=== PATIENT | female | born 1980 | race Caucasian/White ===

== ENCOUNTER 2017-01-15 20:06 | Emergency (ER) | payer OTHER ==
[2017-01-15 22:44] LABS: BASOPHIL % 1.6 % (0-2); PLATELET COUNT 216 x10^3mcL (130-400)
[2017-01-15 22:46] LABS: RED CELL DISTRIBUTION WIDTH 15.3 % (11.5-14.5)
[2017-01-15 22:58] LABS: CALCIUM 8.7 mg/dL (8.5-10.1); CHLORIDE SERUM 105 mmol/L (98-107); CREATININE SERUM 0.9 mg/dL (0.6-1.0); GFR1 > 60 mL/min; GLUCOSE SERUM 119 mg/dL (74-106); POTASSIUM SERUM 4.1 mmol/L (3.5-5.1); SODIUM SERUM 141 mmol/L (136-145)
[2017-01-15 23:03] LABS: ALKALINE PHOSPHATASE 78 U/L (46-116); ALT/SGPT 41 U/L (14-59); AST/SGOT 22 U/L (15-37); BILIRUBIN TOTAL 0.2 mg/dL (0.20-1.00); LIPASE 216 IU/L (73-393)
[2017-01-15 23:04] LABS: ALBUMIN 3.3 g/dL (3.4-5.0)
[2017-01-16 04:00] VITALS: BP 127/66
== END 2017-01-16 04:00 | disposition home or self-care (01) ==
LOC: ED 20:06
PROVIDERS: Emergency Medicine
DX: R10.30 Lower abdominal pain, unspecified (principal)
CPT/HCPCS: J0500; J1170; J1885; J2270; J2405

== ENCOUNTER 2017-03-30 16:24 | Emergency (ER) | payer OTHER ==
[2017-03-30 17:36] LABS: BASOPHIL % 1.1 % (0-2); PLATELET COUNT 232 x10^3mcL (130-400)
[2017-03-30 17:36] LABS: UA SPECIFIC GRAVITY 1.025 (1.005-1.035); microscopic required? YES; urine erythrocyte 2+ (NEGATIVE)
[2017-03-30 17:39] LABS: CALCIUM 8.6 mg/dL (8.5-10.1); CARBON DIOXIDE 28.4 mmol/L (21-32); CHLORIDE SERUM 106 mmol/L (98-107); CREATININE SERUM 0.8 mg/dL (0.6-1.0); GFR1 > 60 mL/min; GLUCOSE SERUM 114 mg/dL (74-106); POTASSIUM SERUM 3.8 mmol/L (3.5-5.1); SODIUM SERUM 141 mmol/L (136-145)
[2017-03-30 17:43] LABS: RED CELL DISTRIBUTION WIDTH 15.1 % (11.5-14.5)
[2017-03-30 17:45] LABS: ALKALINE PHOSPHATASE 88 U/L (46-116); ALT/SGPT 38 U/L (14-59); AMYLASE 39 U/L (25-115); AST/SGOT 19 U/L (15-37); BILIRUBIN TOTAL 0.2 mg/dL (0.20-1.00); LIPASE 204 IU/L (73-393); TOTAL PROTEIN, SERUM 7.2 g/dL (6.4-8.2)
[2017-03-30 17:47] LABS: ALBUMIN 3.3 g/dL (3.4-5.0)
[2017-03-30 19:07] VITALS: BP 124/87
== END 2017-03-30 19:07 | disposition home or self-care (01) ==
LOC: ED 16:24
PROVIDERS: Emergency Medicine
DX: N83.202 Unspecified ovarian cyst, left side (principal)
CPT/HCPCS: 36415; 83880; J1885

== ENCOUNTER 2017-10-09 18:37 | Emergency (ER) | payer OTHER ==
[~2017-10-09] VITALS: Ht 175.3 cm; Wt 132.4 kg
[2017-10-09 18:42] VITALS: Ht 175.3 cm; Wt 132.4 kg
[2017-10-10 00:28] VITALS: BP 142/89
== END 2017-10-10 00:28 | disposition home or self-care (01) ==
LOC: ED 18:37
DX: G43.909 Migraine, unspecified, not intractable, without status migrainosus (principal); G44.209 Tension-type headache, unspecified, not intractable; R42 Dizziness and giddiness; H53.149 Visual discomfort, unspecified
CPT/HCPCS: J0780; J2405; J7030